=== PATIENT | male | born 1960 | race Caucasian/White ===

== ENCOUNTER → 2024-05-20 | Day surgery (SDC) | payer MEDICARE, MEDICAID ==
[~2024-05-20] VITALS: Ht 172.7 cm; Wt 59.0 kg
[~2024-05-20] MED LIST: AMLO10TA80 PO; ASPI-1406 PO; ATOR-2 PO; BACITRACIN 14GM TUBE TOP ONE; BUPIVACAINE HCL/PF 0.5% (5MG/ML) 10ML ONE; CALC667C PO; FAMO20TA8 PO; FENTANYL CITRATE/PF 50MCG/ML 2ML VIAL IV PRN; FENTANYL CITRATE/PF 50MCG/ML 2ML VIAL ONE; FOLI0.8T53 PO; FURO80TA87 PO; GABA-529 PO; HEPARIN 1000 UNITS/ML 10ML ONE; HEPARIN SODIUM 1,000 UNIT/1ML VIAL IV ONE; INSU300I SQ; LIDOCAINE HCL 1% 10 MG/ML 10ML VIAL ONE; LIDOCAINE HCL 1% 20ML VIAL ONE; LOSA50TA41 PO; MIDAZOLAM HCL 2 MG/2 ML VIAL ONE; ONDANSETRON HCL 4MG/2ML INJ IV PRN; PROPOFOL 10MG/ML 100ML 100 ML IV ONE; PROPOFOL 200MG/20ML VIAL IV ONE; SEMA0.258 SQ; SEVE800T8 PO; SODIUM CHLORIDE 0.9% 500 ML IV SCH; THROMBIN (BOVINE) 5000 UNITS/VIAL TOP ONE
[2024-05-20 10:09] LABS: BASOPHILS % 0.6 % (0.0-2.0); EOSINOPHILS % 2.7 % (0.0-5.0); HEMATOCRIT. 28.1 % (42.0-52.0); HEMOGLOBIN. 9.4 g/dL (14.0-18.0); LYMPHOCYTES % 22.9 % (20.0-50.0); MEAN CORPUSCULAR HGB CONC 33.4 g/dL (31.0-37.0); MEAN CORPUSCULAR VOLUME 98.7 fL (80.0-94.0); MONOCYTES % 10.5 % (2.0-8.0); NEUTROPHILS % 63.3 % (40.0-76.0); PLATELET 247 x1000/uL (130-400); RED BLOOD CELL COUNT 2.84 mill/uL (4.7-6.1); RED CELL DISTRIBUTION WIDTH 13.4 % (11.6-14.6)
[2024-05-20 10:15] LABS: POTASSIUM 4.6 mEq/L (3.5-5.1)
[2024-05-20 10:16] LABS: CALCIUM 9.7 mg/dL (8.7-10.4); PARTIAL THROMBOPLASTIN TIME 24.8 sec (23.4-31.0)
[2024-05-20 10:35] LABS: CREATININE 5.3 mg/dL (0.6-1.3)
== END | disposition home or self-care (01) ==
LOC: OR 09:33
PROVIDERS: ATTEND Surgery Vascular Surgery
DX: I12.0 Hypertensive chronic kidney disease with stage 5 chronic kidney disease or end stage renal disease (principal); N18.6 End stage renal disease; E11.22 Type 2 diabetes mellitus with diabetic chronic kidney disease; E78.5 Hyperlipidemia, unspecified; Z79.84 Long term (current) use of oral hypoglycemic drugs; Z79.82 Long term (current) use of aspirin; Z79.899 Other long term (current) drug therapy; Z99.2 Dependence on renal dialysis; Z98.890 Other specified postprocedural states
CPT/HCPCS: 36821; 80048; 85025; 85610; 85730; 36415; 93005; J3010; J3490 ×4; J1644 ×2; J2250; J2704 ×2; J7050; J7030

== ENCOUNTER 2024-08-30 14:38 | Emergency (ER) | payer MEDICARE, MEDICAID ==
[~2024-08-30] VITALS: Ht 157.5 cm; Wt 58.0 kg
[~2024-08-30 14:38] MED LIST changes: -BACITRACIN 14GM TUBE TOP ONE; -BUPIVACAINE HCL/PF 0.5% (5MG/ML) 10ML ONE; -FENTANYL CITRATE/PF 50MCG/ML 2ML VIAL IV PRN; -FENTANYL CITRATE/PF 50MCG/ML 2ML VIAL ONE; -FOLI0.8T53 PO; -FURO80TA87 PO; -GABA-529 PO; -HEPARIN 1000 UNITS/ML 10ML ONE; -HEPARIN SODIUM 1,000 UNIT/1ML VIAL IV ONE; -LIDOCAINE HCL 1% 10 MG/ML 10ML VIAL ONE; -LIDOCAINE HCL 1% 20ML VIAL ONE; -LOSA50TA41 PO; -MIDAZOLAM HCL 2 MG/2 ML VIAL ONE; -ONDANSETRON HCL 4MG/2ML INJ IV PRN; -PROPOFOL 10MG/ML 100ML 100 ML IV ONE; -PROPOFOL 200MG/20ML VIAL IV ONE; -SEVE800T8 PO; -SODIUM CHLORIDE 0.9% 500 ML IV SCH; -THROMBIN (BOVINE) 5000 UNITS/VIAL TOP ONE
[2024-08-30 15:00] VITALS: BP 125/44; TEMP 98.4; O2SAT 97
[2024-08-30 15:07] VITALS: PULSE 71; RESP 18; O2SAT 99
== END 2024-08-30 17:59 | disposition left against medical advice (07) ==
LOC: ER 14:56
DX: R06.02 Shortness of breath (principal); E11.22 Type 2 diabetes mellitus with diabetic chronic kidney disease; N18.9 Chronic kidney disease, unspecified; E78.00 Pure hypercholesterolemia, unspecified; Z53.21 Procedure and treatment not carried out due to patient leaving prior to being seen by health care provider

== ENCOUNTER 2024-09-16 21:30 | Inpatient (IN) | payer MEDICARE, MEDICAID ==
[~2024-09-16] VITALS: Ht 165.1 cm; Wt 61.4 kg
[2024-09-16 22:54] LABS: BASOPHILS % 0.7 % (0.0-2.0); DIFFERENTIAL COMMENT 0; EOSINOPHILS % 1.8 % (0.0-5.0); HEMATOCRIT. 31.7 % (42.0-52.0); HEMOGLOBIN. 10.6 g/dL (14.0-18.0); LYMPHOCYTES % 13.1 % (20.0-50.0); MEAN CORPUSCULAR HEMOGLOBIN 33.9 pg (28.0-32.0); MEAN CORPUSCULAR HGB CONC 33.4 g/dL (31.0-37.0); MEAN CORPUSCULAR VOLUME 101.4 fL (80.0-94.0); MEAN PLATELET VOLUME 8.4 fl (7.4-10.4); MONOCYTES % 8.7 % (2.0-8.0); NEUTROPHILS % 75.7 % (40.0-76.0); PLATELET 221 x1000/uL (130-400); RED BLOOD CELL COUNT 3.13 mill/uL (4.7-6.1); RED CELL DISTRIBUTION WIDTH 13.8 % (11.6-14.6); WHITE BLOOD COUNT 5.7 x1000/uL (4.5-11.0)
[2024-09-16 22:57] LABS: CHLORIDE 99 mEq/L (98-107); POTASSIUM 4.5 mEq/L (3.5-5.1); SODIUM 136 mEq/L (136-145)
[2024-09-16 22:58] LABS: CALCIUM 9.6 mg/dL (8.7-10.4); CARBON DIOXIDE 27 mEq/L (21-32)
[2024-09-16 23:03] LABS: GLUCOSE 174 mg/dL (70-105); TROPONIN I HIGH SENSITIVITY 44 ng/L (3.0-53); UREA NITROGEN BLOOD 50 mg/dL (9-23)
[2024-09-16 23:05] LABS: ALANINE AMINOTRANSFERASE 17 IU/L (10-49); ALBUMIN 4.1 g/dL (3.2-4.8); ASPARTATE AMINOTRANSFERASE 15 IU/L (<34); BILIRUBIN DIRECT 0.1 mg/dL (<=3.0); BILIRUBIN TOTAL 0.4 mg/dL (0.1-1.0); PROTEIN TOTAL 6.9 g/dL (6.0-8.3)
[2024-09-17] VITALS (10 sets, daily range): BP systolic 118–148; BP diastolic 51–83; PULSE 68–88; RESP 17–22; TEMP 36.44736–36.6696; O2SAT 95–98
[2024-09-17] MEDS ORDERED: DEXTROSE 50% WATER 50ML SYRINGE IV PRN (01:45)
[2024-09-17] MEDS ORDERED: CLONIDINE 0.1MG TABLET PO PRN (01:45)
[2024-09-17] MEDS ORDERED: IPRATROPIUM/ALBUTEROL 0.5-3(2.5)MG/3ML NEB HHN PRN (01:45)
[2024-09-17] MEDS ORDERED: ACETAMINOPHEN 325MG TABLET PO PRN ×2 (01:45)
[2024-09-17] MEDS ORDERED: DOCUSATE SODIUM 100MG CAPSULE PO PRN (01:45)
[2024-09-17] MEDS ORDERED: ONDANSETRON HCL 4MG/2ML INJ IV PRN (01:45)
[2024-09-17] MEDS ORDERED: GUAIFENESIN 200MG/10ML SUGAR FREE UDC PO PRN (01:45)
[2024-09-17] MEDS: FUROSEMIDE 40MG/4ML VIAL IVP ONE (04:50)
[2024-09-17] MEDS: FUROSEMIDE 40MG/4ML VIAL IVP NR (04:55)
[2024-09-17 08:02] LABS: IRON 65 ug/dL (65-175)
[2024-09-17 08:03] LABS: CREATINE KINASE MB FRACTION 1.2 ng/mL (0.5-3.6); LDL CHOLESTEROL 81 mg/dL (5-100); TRIGLYCERIDE 171 mg/dL (0-150)
[2024-09-17 08:04] LABS: TROPONIN I HIGH SENSITIVITY 45 ng/L (3.0-53)
[2024-09-17 08:05] LABS: CHOLESTEROL 139 mg/dL (<200); CREATINE KINASE 62 IU/L (46-171); HDL CHOLESTEROL 24 mg/dL (>55); TOTAL IRON BINDING CAPACITY 222 ug/dl (250-425)
[2024-09-17 08:07] LABS: VITAMIN B12 SERUM 994 pg/mL (211-911)
[2024-09-17 08:21] LABS: FOLIC ACID (FOLATE) SERUM > 20.00 ng/mL (>5.38)
[2024-09-17] MEDS ORDERED: MEDICATION NOT ON FORMULARY EA (Atorvastatin Calcium 1 TAB) PO SCH (09:00)
[2024-09-17 09:34] LABS: CLARITY URINE CLEAR (CLEAR); COLOR URINE YELLOW (YELLOW); PH URINE >=9.0 (4.5-8.0); SPECIFIC GRAVITY URINE 1.013 (1.005-1.030)
[2024-09-17 09:35] LABS: GLUCOSE URINE 1+ (NEGATIVE); KETONES URINE NEGATIVE (NEGATIVE); LEUKOCYTE ESTERASE URINE NEGATIVE (NEGATIVE); NITRITE URINE NEGATIVE (NEGATIVE); OCCULT BLOOD URINE NEGATIVE (NEGATIVE); PROTEIN URINE 3+ (NEGATIVE); UROBILINOGEN URINE 0.2 E.U./dL (0.2-1.0)
[2024-09-17 09:41] LABS: BACTERIA URINE RARE; RBC URINE NONE SEEN /hpf (0-2); SQUAMOUS EPITHELIAL CELL URINE NONE SEEN /lpf (RARE/1+); WBC URINE 0-2 /hpf (0-2); YEAST URINE NONE SEEN
[2024-09-17 09:50] LABS: *AMPHETAMINES SCREEN URINE NEGATIVE (NEGATIVE); *BARBITURATES SCREEN URINE NEGATIVE (NEGATIVE); *BENZODIAZEPINES SCREEN URINE NEGATIVE (NEGATIVE); *COCAINE SCREEN URINE NEGATIVE (NEGATIVE); METHADONE URINE SCREEN NEGATIVE (NEGATIVE)
[2024-09-17 09:51] LABS: CANNABINOID URINE SCREEN NEGATIVE (NEGATIVE); ECSTASY MDMA SCREEN URINE NEGATIVE (NEGATIVE); OPIATES URINE SCREEN NEGATIVE (NEGATIVE); PHENCYCLIDINE URINE SCREEN NEGATIVE (NEGATIVE)
[2024-09-17] MEDS: CALCIUM ACETATE 667MG CAPSULE PO SCH (10:46)
[2024-09-17] MEDS: ENOXAPARIN 30MG/0.3ML SYR SUBCUT SCH (10:46)
[2024-09-17] MEDS: FAMOTIDINE 20MG TABLET PO SCH (10:49)
[2024-09-17] MEDS: ASPIRIN 81MG EC TABLET PO SCH (10:49)
[2024-09-17] MEDS: AMLODIPINE 10MG TABLET PO SCH (10:49)
[2024-09-17] MEDS: INSULIN LISPRO 100 UNITS/ML SUBCUT SCH (10:49)
[2024-09-17] MEDS: BLOOD SUGAR DIAGNOSTIC STRIP TEST SCH (10:49)
[2024-09-17 17:18] LABS: CREATINE KINASE MB FRACTION 1.4 ng/mL (0.5-3.6)
[2024-09-17 17:34] LABS: HEPATITIS B SURFACE ANTIGEN NEGATIVE (Negative)
[2024-09-17 17:55] LABS: HEPATITIS A AB IGM NEGATIVE (Negative)
[2024-09-17 17:56] LABS: HEPATITIS B CORE AB IGM NEGATIVE (Negative); HEPATITIS C AB NON REACTIVE (Neg) (Negative)
[2024-09-17] MEDS ORDERED: ATORVASTATIN CALCIUM 40MG TABLET PO SCH (21:00)
[2024-09-17] MEDS: ATORVASTATIN CALCIUM 40MG TABLET PO SCH (21:27)
[2024-09-18] VITALS (14 sets, daily range): BP systolic 116–146; BP diastolic 68–81; PULSE 62–96; RESP 16–20; TEMP 36.114–37.00296; O2SAT 95–100
[2024-09-18 09:35] LABS: HEMATOCRIT 33.1 % (42.0-52.0); HEMOGLOBIN 11.1 g/dL (14.0-18.0); MEAN CORPUSCULAR HEMOGLOBIN 34.1 pg (28.0-32.0); MEAN CORPUSCULAR HGB CONC 33.6 g/dL (31.0-37.0); MEAN CORPUSCULAR VOLUME 101.3 fL (80.0-94.0); PLATELET 223 x1000/uL (130-400); RED BLOOD CELL COUNT 3.27 mill/uL (4.7-6.1); RED CELL DISTRIBUTION WIDTH 13.7 % (11.6-14.6); WHITE BLOOD COUNT 5.3 x1000/uL (4.5-11.0)
[2024-09-18 10:05] LABS: CHLORIDE 102 mEq/L (98-107); POTASSIUM 4.9 mEq/L (3.5-5.1); SODIUM 139 mEq/L (136-145)
[2024-09-18 10:06] LABS: CALCIUM 9.8 mg/dL (8.7-10.4); CARBON DIOXIDE 25 mEq/L (21-32)
[2024-09-18 10:11] LABS: GLUCOSE 98 mg/dL (70-105); UREA NITROGEN BLOOD 48 mg/dL (9-23)
[2024-09-18 10:13] LABS: PHOSPHORUS 3.9 mg/dL (2.5-4.9)
[2024-09-18 10:28] LABS: CREATININE 7.8 mg/dL (0.6-1.3)
[2024-09-18] MEDS: CARVEDILOL 3.125 MG TABLET PO SCH (21:42)
[2024-09-19] VITALS: BP 144/72; PULSE 67; RESP 18; TEMP 36.33624; O2SAT 100
[2024-09-19 04:00] VITALS: BP 133/79; PULSE 74; RESP 18; TEMP 36.33624; O2SAT 100
[2024-09-19 08:00] VITALS: BP 129/75; PULSE 70; RESP 18; TEMP 36.3918; O2SAT 99
[2024-09-19] MEDS: EMPAGLIFLOZIN 10MG TABLET PO SCH (08:21)
[2024-09-19 12:26] VITALS: BP 117/66; PULSE 72; RESP 20; TEMP 37.11408; O2SAT 95
[2024-09-19 13:32] VITALS: BP 117/66; PULSE 72; TEMP 98.8; O2SAT 95
== END 2024-09-19 14:00 | disposition home or self-care (01) | DRG 291 ==
LOC: ER 21:30 → 7WST 23:45 → EDBEDREQTM 09-17 00:51 → EDBEDREQ 09-17 00:51
PROVIDERS: ADMIT Internal Medicine; ATTEND Internal Medicine
PROC: 5A1D70Z Performance of Urinary Filtration, Intermittent, Less than 6 Hours Per Day (ICD-10-PCS; principal; 2024-09-17)
PROC: 5A1D70Z Performance of Urinary Filtration, Intermittent, Less than 6 Hours Per Day (ICD-10-PCS; 2024-09-18)
DX: I13.2 Hypertensive heart and chronic kidney disease with heart failure and with stage 5 chronic kidney disease, or end stage renal disease (principal); I50.43 Acute on chronic combined systolic (congestive) and diastolic (congestive) heart failure; N18.6 End stage renal disease; J96.01 Acute respiratory failure with hypoxia; E11.22 Type 2 diabetes mellitus with diabetic chronic kidney disease; E78.00 Pure hypercholesterolemia, unspecified; I34.0 Nonrheumatic mitral (valve) insufficiency; D63.1 Anemia in chronic kidney disease; Z79.899 Other long term (current) drug therapy; Z91.158 Patient's noncompliance with renal dialysis for other reason; Z79.4 Long term (current) use of insulin; Z99.2 Dependence on renal dialysis; Z79.82 Long term (current) use of aspirin
CPT/HCPCS: 36415; 71045; 80048; 80061; 80076; 80305; 81003; 82550; 82553; 82607; 82746; 82962; 83036; 83540; 83550; 83735; 83880; 84100; 84484; 85025; 85027; 86705; 86709; 87340; 90935; 93306; 93970; 99291; J1650; J1815; J1940

== ENCOUNTER → 2024-10-12 | Outpatient (CLI) | payer MEDICARE, MEDICAID ==
[~2024-10-12] MED LIST changes: +NAPR-681 MT; +PROT40 MT
== END | disposition home or self-care (01) ==
LOC: US 10:47
PROVIDERS: ATTEND Internal Medicine Nephrology
DX: R16.0 Hepatomegaly, not elsewhere classified (principal); K82.8 Other specified diseases of gallbladder; J90 Pleural effusion, not elsewhere classified; K86.89 Other specified diseases of pancreas
CPT/HCPCS: 76700